=== PATIENT | male | born 1965 | race Caucasian/White ===

== ENCOUNTER 2021-12-15 12:24 | Emergency (ER) | payer BC ==
[~2021-12-15 12:24] MED LIST: Sodium Chloride 0.9% 1,000 ML IV SCH
[2021-12-15] MEDS ORDERED: Aspirin 81 MG Tab.Chew PO ONE (12:57)
[2021-12-15 13:23] LABS: ANION GAP 20.4 mmol/L (5-15)
[2021-12-15] MEDS ORDERED: Heparin Sodium/D5W 250 ML IV SCH (14:20)
[2021-12-15] MEDS ORDERED: Heparin Sodium 5,000 Units/ML Vial IVPUSH ONE (14:20)
== END 2021-12-15 14:24 ==
LOC: KA.ED 12:24 → MERGE 12:24 → KA.ED 14:24
DX: I24.9 Acute ischemic heart disease, unspecified (principal); Z79.899 Other long term (current) drug therapy; Z79.4 Long term (current) use of insulin; Z79.84 Long term (current) use of oral hypoglycemic drugs
CPT/HCPCS: 36415; 71045; 80048; 82947; 84484; 85025; 85610; 85730; 93010; 96361; 96374; 99284; 99285-25; A9270-GY; J1644; J7030